=== PATIENT | male | born 1960 | race Caucasian/White ===

== ENCOUNTER 2025-07-01 15:43 | Outpatient (CLI) | payer MEDICARE, SELFPAY ==
--- NOTE | 2025-07-01 15:53 | XR_ITS ---
WS: [id number] XR KUB [id number] REASON FOR EXAM: CONSTIPATION FINDINGS: Bowel gas pattern is unremarkable with no significant volume of stool retention. No significantly distended bowel. No free air or retroperitoneal air. Large, presumed artifact, overlying the left iliac wing. No mass or organomegaly. No significant calcification. 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 No focal bone abnormality within the pelvis. XR/XR KUB [id number] IMPRESSION: No acute abnormality in the abdomen. No significant volume of retained fecal material. Presumed artifact as above.
== END 2025-07-01 15:44 | disposition home or self-care (01) ==
LOC: RAD 15:49
PROVIDERS: PCP Nurse Practitioner Family; Visit Provider Nurse Practitioner Family
DX: K59.00 Constipation, unspecified (principal); M47.896 Other spondylosis, lumbar region
CPT/HCPCS: 74018